=== PATIENT | male | born 1980 | race Caucasian/White ===

== ENCOUNTER 2021-01-09 15:19 | Emergency (ER) | payer OTHER ==
[2021-01-09] MEDS ORDERED: Bacitracin Oint 1 GM U/D Packet TOP ONE (15:57)
[2021-01-09] MEDS ORDERED: Lidocaine 1% with EPINEPHrine 1:100,000 50 ML MDV SUBCUT STA (15:57)
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
== END 2021-01-09 17:18 | disposition home or self-care (01) ==
LOC: JP.ED 15:19
DX: S81.811A Laceration without foreign body, right lower leg, initial encounter (principal); S81.812A Laceration without foreign body, left lower leg, initial encounter; Z88.1 Allergy status to other antibiotic agents; V86.52XA Driver of snowmobile injured in nontraffic accident, initial encounter
CPT/HCPCS: 12002; 12004; 99282-25; 99283